=== PATIENT | male | born 1935 | race Caucasian/White ===

== ENCOUNTER 2017-02-11 12:01 | Observation (INO) | payer MEDICARE, OTHER ==
--- NOTE | ~2017-02-11 | OP ---
Record Of Operation [facility] [address] [place]. [address] NAME: JENNIFER VILLASEÑOR : 37 STATUS : ADM Carlin PAT#: [id number] AGE: 81 ADM/REG DATE : 02/11/17 MR#: [id number] REPORT SERV DATE: 02/11/17 DICTATED BY: ANGELO REGALADO JR. DATE: 02/11/17 REPORT STATUS : Draft TRANSCRIBED BY: MODDaniel DATE: 02/11/17 DATE OF PROCEDURE: 02/11/2017 PREOPERATIVE DIAGNOSES: Bladder outlet obstruction, BPH, and urinary retention. POSTOPERATIVE DIAGNOSES: Bladder outlet obstruction, BPH, and urinary retention. PROCEDURE PERFORMED: Transurethral resection of the prostate and cystoscopy. COMPLICATIONS: None. CONSULTATIONS: None. ANESTHESIA: General with laryngeal mask airway. SPECIMENS: Prostate chips. DRAINS: A 24-H[place]er 3-way Tao catheter. ESTIMATED BLOOD LOSS: 5 mL. INDICATION: Mr. Villaseñor is an 81-year-old gentleman, who is status post microwave thermotherapy in the past by an outside urologist, who failed that therapy and has actually been in retention for several weeks. He has been doing clean intermittent catheterization. Cystoscopic examination showed the prostatic urethra to be approximately 3.5 cm in length. Prostate ultrasound measured the prostate at around 70 g. The patient comes today for transurethral resection of the prostate. PROCEDURE IN DETAIL: After the patient was identified and proper informed consent was obtained, he was taken to the operating room. General anesthesia was performed without complication using an endotracheal tube. He was then prepped and draped in the normal sterile fashion in the lithotomy position. Cystoscopic examination of the urethra revealed a normal penile and bulbous urethra. The prostatic urethra was approximately 3.5 cm in length with trilobar hypertrophy. He had some trabeculation of the bladder with two small diverticula, small mouth diverticula were noted. Both ureteral orifices were in the normal position and normal size. I then removed the cystoscope and replaced it with a 26-H[place] Konger resectoscope and began by excising the right lateral lobe of the prostate from bladder neck to verumontanum down to the surgical capsule. I then moved my attention over to the left side of the prostate and completed the resection in the left side of the prostate in a similar fashion. While resecting the median lobe of the prostate, the patient began to move from lack of muscle paralysis. I was able to remove this resectoscope quickly. However, he did have a small tear at the bladder neck. Upon reinspection, once the patient had adequate anesthesia, I then cauterized this area. There was no avulsion of the bladder neck but simply a small injury at the bladder neck into the muscular fibers of the bladder neck. I then finished cauterizing this area and was able to get reasonable hemostasis. I then completed the rest of the resection of the median lobe and removed the chips from the Record Of Operation [address] [address] NAME: JENNIFER VILLASEÑOR : 37 STATUS : ADM Carlin PAT#: [id number] AGE: 81 ADM/REG DATE : 02/11/17 MR#: [id number] REPORT SERV DATE: 02/11/17 DICTATED BY: ANGLEO REGALADO JR. DATE: 02/11/17 REPORT STATUS : Draft TRANSCRIBED BY: MODL DATE: 02/11/17 bladder using the InboundWriter evacuator. I reinspected the bladder and prostatic fossa. I cauterized the prostatic fossa along with the mucosal edge along the area of the bladder. Both ureteral orifices were without injury. At the end of the operation, a 24-[place]er 3-way Tao catheter was inserted over a catheter guide. 50 mL of sterile water was placed in the balloon and the balloon was placed to light traction and continuous bladder irrigation with sterile saline. The patient was awakened in the operating room and transferred to the postanesthesia care unit in stable condition. TONYA/LEONARDO Angelo Regalado Jr., M.D. / [id number] CC: Angelo Regalado Jr., M.D.
[~2017-02-11 12:01] MED LIST: ASAB PO; C5 PO; CARDCD180 PO; COUMADIN10 MG PO; CRESTOR10 PO; FISH-EPA1000 MG PO; FLOMAX4 PO; JANTOVEN10 MG PO; JANTOVEN2 MG PO; NITROSTAT0.4 MG SL; PRIM250 PO; PRIN20 PO; PRINZIDE1 TA1 PO; TOPAMAX25 PO; VITAMIN D31000 UNIT PO; VYTORIN 10/40 T1 TAB PO
[2017-02-11 12:27] LABS: PROTIME (NOT ORD) 13.4 SEC (12.0-14.5)
[2017-02-11 16:13] LABS: HEMOGLOBIN 11.8 g/dL (13.6-17.8)
[2017-02-11 16:15] LABS: HEMATOCRIT 33.5 % (40.0-51.0)
[2017-02-12 05:39] LABS: HEMATOCRIT 33.6 % (40.0-51.0); HEMOGLOBIN 11.7 g/dL (13.6-17.8)
[2017-02-12] MEDS ORDERED: PCET PO (17:19)
[2017-02-12] MEDS ORDERED: DSS PO (17:20)
== END 2017-02-12 18:37 | disposition home or self-care (01) ==
LOC: SDC 12:01 → SDC/OF 16:00 → 5SO 17:10
PROVIDERS: Urology
PROC: 0VT08ZZ Resection of Prostate, Via Natural or Artificial Opening Endoscopic (ICD-10-PCS; principal; 2017-02-11 14:00)
DX: N40.0 Benign prostatic hyperplasia without lower urinary tract symptoms (principal); I25.10 Atherosclerotic heart disease of native coronary artery without angina pectoris; I10 Essential (primary) hypertension; G57.90 Unspecified mononeuropathy of unspecified lower limb; E78.00 Pure hypercholesterolemia, unspecified; M19.90 Unspecified osteoarthritis, unspecified site; Z98.1 Arthrodesis status; Z95.1 Presence of aortocoronary bypass graft; Z88.1 Allergy status to other antibiotic agents; Z90.49 Acquired absence of other specified parts of digestive tract
CPT/HCPCS: 36415; 80048; 81001; 84295; 85014; 85018; 85610; 86850; 86900; 86901; 88305; 93005; 96372; A9270-GY; G0378; J2405; J2710; J3010